=== PATIENT | male | born 1990 | race Caucasian/White ===

== ENCOUNTER 2019-05-06 14:52 | Emergency (ER) | payer BC, OTHER ==
[~2019-05-06] VITALS: Ht 177.8 cm; Wt 86.2 kg
[2019-05-06 15:24] LABS: BASOPHILS % (AUTO) 0 % (0-10); EOSINOPHILS # (AUTO) 0.2 10^3/uL (0.0-0.3); EOSINOPHILS % (AUTO) 2 % (0-10); HEMATOCRIT 44 % (40-54); LYMPHOCYTES # (AUTO) 2.4 X 10^3 (1.0-4.0); LYMPHOCYTES % (AUTO) 30 % (12-44); MEAN CORPUSCULAR HEMOGLOBIN 29 PG (25-34); MEAN CORPUSCULAR HGB CONC 34 G/DL (32-36); MEAN CORPUSCULAR VOLUME 85 FL (80-99); MEAN PLATELET VOLUME 9.8 FL (7.4-10.4); MONOCYTES # (AUTO) 0.5 X 10^3 (0.0-1.0); MONOCYTES % (AUTO) 6 % (0-12); NEUTROPHILS % (AUTO) 62 % (42-75); PLATELET COUNT 234 10^3/uL (130-400); RED CELL DISTRIBUTION WIDTH 12.6 % (10.0-14.5); WHITE BLOOD COUNT 8.1 10^3/uL (4.3-11.0)
[2019-05-06] MEDS ORDERED: ASPIRIN 81 MG CHEW (CHILDREN'S ASA) PO ONE (15:30)
[2019-05-06 15:33] LABS: PROTHROMBIN TIME PATIENT 13.1 SEC (12.2-14.7)
[2019-05-06 15:37] LABS: ALANINE AMINOTRANSFERASE 50 U/L (0-55); ALBUMIN 4.6 GM/DL (3.2-4.5); ALKALINE PHOSPHATASE 65 U/L (40-136); BILIRUBIN,TOTAL 0.5 MG/DL (0.1-1.0); BUN/CREATININE RATIO 10; CALCIUM 9.5 MG/DL (8.5-10.1); CARBON DIOXIDE 29 MMOL/L (21-32); CHLORIDE 104 MMOL/L (98-107); CREATININE SERUM 1.21 MG/DL (0.60-1.30); GFR ESTIMATED > 60; GLUCOSE 90 MG/DL (70-105); MAGNESIUM 2.1 MG/DL (1.8-2.4); POTASSIUM 3.9 MMOL/L (3.6-5.0); SODIUM 142 MMOL/L (135-145); TOTAL PROTEIN 7.5 GM/DL (6.4-8.2)
--- NOTE | 2019-05-06 15:37 | ED Chest Pain ---
General Chief Complaint: Chest Pain Stated Complaint: CHEST PAIN Nursing Triage Note: PT STATES HE BEGAN HAVING CHEST PAIN LAST NIGHT. PT STATES HE HAD INDEGESTION THIS AM AND TOOK TUMS THIS AM. PT DENIES PUSHING OR PULLING EXERCISES TO CAUSE PAIN. PT DENIES WORSENS WITH DEEP BREATH. PT DENIES POINT TENDERNESS. PT DENIES N/V/D/FEVER. PT DENIES SMOKING. Nursing Sepsis Screen: No Definite Risk History of Present Illness Date Seen by Provider: May 06, 2019 Time Seen by Provider: 15:15 Initial Comments 28-year-old male presents for chest pressure. He reports last evening he was having pain in his right leg intermittently. Today he has had some numbness and midsternal chest pressure. 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 He denies any back or neck injuries. Timing/Duration: 24 hours Severity/Quality: mild Location: substernal Radiation: no radiation Prior CP/Workup: no prior chest pain ASA po ELECTRICAL DESIGN ENGINEER: No NTG SL ELECTRICAL DESIGN ENGINEER: No Associated Symptoms: back pain; No diaphoresis, No fatigue; heartburn; No nausea/vomiting, No shortness of breath, No syncope, No weakness Allergies and Home Medications Allergies Coded Allergies: No Known Drug Allergies (Unverified , 05/06/19) Home Medications Esomeprazole Magnesium 40 Mg Cap, 40 MG PO DAILY Prescribed by: RAMBO FISHER on 05/06/19 1643 Famotidine 20 Mg Tablet, 20 MG PO BID Prescribed by: RAMBO FISHER on 05/06/19 1643 Patient Home Medication List Home Medication List Reviewed: Yes Review of Systems Review of Systems Constitutional: no symptoms reported, see HPI Cardiovascular: See HPI, Chest Pain Musculoskeletal: see HPI, back pain, neck pain All Other Systems Reviewed Negative Unless Noted: Yes Past Ueygjoj-Nvmnrr-Wfzipd Hx Past Med/Social Hx: Reviewed Nursing Past Med/Soc Hx Patient Social History Alcohol Use: Denies Use Recreational Drug Use: No Smoking Status: Current Everyday Smoker Type Used: Smokeless Tobacco Recent Foreign Travel: No Contact w/Someone Who Travel: No Recent Infectious Disease Expo: No Recent Hopitalizations: No Physical Abuse: No Sexual Abuse: No Mistreated: No Fear: No Seasonal Allergies Seasonal Allergies: No Past Medical History Surgeries: No Respiratory: No Cardiac: No Neurological: No Genitourinary: No Gastrointestinal: No Musculoskeletal: No Endocrine: No HEENT: No Cancer: No Psychosocial: No Integumentary: No Physical Exam Vital Signs Vital Signs - First Documented 05/06/19 15:03 Temp 97.7 Pulse 73 Resp 18 B/P (MAP) 144/88 (106) Pulse Ox 99 O2 Delivery Room Air Capillary Refill : Less Than 3 Seconds Height, Weight, BMI Height: 5'10.00" Weight: 190lbs. oz. 86.713863qr; BMI Method:Stated General Appearance: No Apparent Distress, WD/WN HEENT: PERRL/EOMI, TMs Normal, Normal ENT Inspection, Pharynx Normal Neck: Full Range of Motion, Normal Inspection, Non Tender, Supple Respiratory: Chest Non Tender, Lungs Clear, Normal Breath Sounds Cardiovascular: Regular Rate, Rhythm, No Edema, No Murmur, Normal Peripheral Pulses Gastrointestinal: Normal Bowel Sounds, Non Tender, Soft Neurologic/Psychiatric: Alert, Oriented x3, No Motor/Sensory Deficits, Normal Mood/Affect Skin: Normal Color, Warm/Dry Lymphatic: No Adenopathy Progress/Results/Core Measures Results/Orders Lab Results Laboratory Tests Test 05/06/19 14:59 Range/Units White Blood Count 8.1 4.3-11.0 10^3/uL Red Blood Count 5.16 4.35-5.85 10^6/uL Hemoglobin 15.0 13.3-17.7 G/DL Hematocrit 44 40-54 % Mean Corpuscular Volume 85 80-99 FL Mean Corpuscular Hemoglobin 29 25-34 PG Mean Corpuscular Hemoglobin Concent 34 32-36 G/DL Red Cell Distribution Width 12.6 10.0-14.5 % Platelet Count 234 130-400 10^3/uL Mean Platelet Volume 9.8 7.4-10.4 FL Neutrophils (%) (Auto) 62 42-75 % Lymphocytes (%) (Auto) 30 12-44 % Monocytes (%) (Auto) 6 0-12 % Eosinophils (%) (Auto) 2 0-10 % Basophils (%) (Auto) 0 0-10 % Neutrophils # (Auto) 5.0 1.8-7.8 X 10^3 Lymphocytes # (Auto) 2.4 1.0-4.0 X 10^3 Monocytes # (Auto) 0.5 0.0-1.0 X 10^3 Eosinophils # (Auto) 0.2 0.0-0.3 10^3/uL Basophils # (Auto) 0.0 0.0-0.1 10^3/uL Prothrombin Time 13.1 12.2-14.7 SEC INR Comment 1.0 0.8-1.4 Activated Partial Thromboplast Time 27 24-35 SEC Sodium Level 142 135-145 MMOL/L Potassium Level 3.9 3.6-5.0 MMOL/L Chloride Level 104 98-107 MMOL/L Carbon Dioxide Level 29 21-32 MMOL/L Anion Gap 9 5-14 MMOL/L Blood Urea Nitrogen 12 7-18 MG/DL Creatinine 1.21 0.60-1.30 MG/DL Estimat Glomerular Filtration Rate > 60 BUN/Creatinine Ratio 10 Glucose Level 90 70-105 MG/DL Calcium Level 9.5 8.5-10.1 MG/DL Corrected Calcium 8.5-10.1 MG/DL Magnesium Level 2.1 1.8-2.4 MG/DL Total Bilirubin 0.5 0.1-1.0 MG/DL Aspartate Amino Transf (AST/SGOT) 24 5-34 U/L Alanine Aminotransferase (ALT/SGPT) 50 0-55 U/L Alkaline Phosphatase 65 40-136 U/L Myoglobin 28.4 10.0-92.0 NG/ML Troponin I < 0.028 <0.028 NG/ML Total Protein 7.5 6.4-8.2 GM/DL Albumin 4.6 H 3.2-4.5 GM/DL My Orders Orders - RAMBO FISHER Cbc With Automated Diff (05/06/19 15:17) Magnesium (05/06/19 15:17) Chest 1 View, Ap/Pa Only (05/06/19 15:17) Ekg Tracing (05/06/19 15:17) Cardiac Profile 1 (05/06/19 15:17) Comprehensive Metabolic Panel (05/06/19 15:17) Myoglobin Serum (05/06/19 15:17) Protime With Inr (05/06/19 15:17) Partial Thromboplastin Time (05/06/19 15:17) Monitor-Rhythm Ecg Trace Only (05/06/19 15:17) Ed Iv/Invasive Line Start (05/06/19 15:17) Aspirin Chewable Tablet (Baby Aspirin Ch (05/06/19 15:30) Lidocaine 2% Viscous 15 Ml (Xylocaine Vi (05/06/19 15:45) Antacid Suspension (Mylanta Suspension (05/06/19 15:45) Medications Given in ED Current Medications Medications Dose Ordered Sig/[place] Route Start Time Stop Time Status Last Admin Dose Admin Al Hydrox/Mg Hydrox/Simethicone 30 ml ONCE ONCE PO 05/06/19 15:45 05/06/19 15:46 DC 05/06/19 15:54 30 ML Aspirin 324 mg ONCE ONCE PO 05/06/19 15:30 05/06/19 15:31 DC 05/06/19 15:53 324 MG Lidocaine HCl 15 ml ONCE ONCE PO 05/06/19 15:45 05/06/19 15:46 DC 05/06/19 15:54 15 ML Vital Signs/I&O 05/06/19 05/06/19 15:03 17:03 Temp 97.7 97.7 Pulse 73 73 Resp 18 18 B/P (MAP) 144/88 (106) 144/88 (106) Pulse Ox 99 99 O2 Delivery Room Air Blood Pressure Mean: 106 Progress Progress Note : Time: 15:15 Progress Note Patient seen and evaluated, will obtain labs, EKG, chest x-ray and aspirin 324 mg orally. 1545 labs essentially normal, patient does report history of GERD. Will give GI cocktail and reevaluate. 1630 patient reports improvement in symptoms after the GI cocktail. We'll provide a day and H2 alan or PPI for the third. He is going to establish care with Dr. Servin's office. Encouraged follow-up there. Discharge instructions and precautions reviewed with the patient. All questions answered. Initial ECG Impression Date: May 06, 2019 Initial ECG Impression Time: 14:57 Initial ECG Rate: 74 Initial ECG Rhythm: Normal Sinus Initial ECG Intervals: Normal Initial ECG Intervals UT 132, QRSD 96, QT 392, QTC 435. [place] P 44, QRS 56, T 33. Initial ECG Impression: Normal Initial ECG Comparisson: No Previous ECG Available Comment Reviewed with Dr. García, agreed with interpretation. Departure Impression Primary Impression: GERD (gastroesophageal reflux disease) Qualified Codes: K21.9 - Gastro-esophageal reflux disease without esophagitis Additional Impressions: Back pain Qualified Codes: M54.41 - Lumbago with sciatica, right side; M54.42 - Lumbago with sciatica, left side; G89.29 - Other chronic pain Neck pain Disposition: 01 HOME, SELF-CARE Condition: Improved Departure-Patient Inst. Decision time for Depature: 16:30 Referrals: NO,LOCAL PHYSICIAN (PCP) Primary Care Physician Patient Instructions: Acid Reflux (Gastroesophageal Reflux Disease), Adult (DC), Chest Pain That Is Not Caused by the Heart (DC), Chronic Neck Pain (DC), Lateral Epicondylitis Exercises Add. Discharge Instructions: Alternate heat and ice on your low back and neck. You may take Tylenol 650 mg alternating with ibuprofen 600 mg every 4 hours for pain. Establish care and Follow-up with Dr. Servin. Take the muscle relaxant at bedtime. Take the prescriptions for your stomach as directed. Return to emergency department for chest pain, nausea and vomiting, increased back/neck pain, or new concerns. All discharge instructions reviewed with patient and/or family. Voiced understanding. Scripts Famotidine (Acid Truss Builder (FAMOTIDINE)) 20 Mg Tablet 20 MG PO BID, #40 TAB 0 Refills Prov: RAMBO FISHER 05/06/19 Esomeprazole Magnesium (Nexium) 40 Mg Cap 40 MG PO DAILY, #20 CAP 0 Refills Prov: RAMBO FISHER 05/06/19 Copy Copies To 1: DIAZ SERVIN AMY ARNP May 06, 2019 15:36
[2019-05-06] MEDS ORDERED: ANTACID SUSP 30 ML UDC (MYLANTA) PO ONE (15:45)
[2019-05-06] MEDS ORDERED: LIDOCAINE 2% VISCOUS 15 ML UDC PO ONE (15:45)
--- NOTE | 2019-05-06 16:08 | Diagnostic Imaging Report ---
PATIENT HISTORY: Chest pain. TECHNIQUE: Single frontal view of the chest. COMPARISON: None. FINDINGS: Lung volumes are mildly large. No focal consolidation is seen. There is no pleural effusion or pneumothorax. The cardiomediastinal silhouette is normal in size and contour. IMPRESSION: Mildly large lung volumes with no acute pulmonary abnormality seen. Dictated by: Dictated on workstation # [id number]
[2019-05-06] MEDS ORDERED: FAMO20TA3 PO (16:43)
[2019-05-06] MEDS ORDERED: NF-ESOM40C PO (16:43)
[2019-05-06 17:03] VITALS: BP 144/88
== END 2019-05-06 16:55 | disposition home or self-care (01) ==
LOC: ER 14:53
DX: K21.9 Gastro-esophageal reflux disease without esophagitis (principal); M54.2 Cervicalgia; M54.5 Low back pain; F17.200 Nicotine dependence, unspecified, uncomplicated
CPT/HCPCS: 36415; 71045; 80053; 83735; 83874; 84484; 85025; 85610; 85730; 93005; 93041

== ENCOUNTER → 2022-03-14 | Outpatient (CLI) | payer OTHER ==
[~2022-03-14] MED LIST: FAMO20TA3 PO; NF-ESOM40C PO
== END ==
LOC: CARD 09:30
PROVIDERS: ATTEND Pediatrics
DX: R07.89 Other chest pain (principal)
CPT/HCPCS: 93225; 93226

== ENCOUNTER → 2022-03-31 | Outpatient (CLI) | payer OTHER | PROVIDERS: ATTEND Internal Medicine Cardiovascular Disease | DX: R07.9 Chest pain, unspecified (principal) | CPT/HCPCS: 93306 ==

== ENCOUNTER → 2023-05-10 | Outpatient (CLI) | payer OTHER ==
[~2023-05-10] MED LIST changes: +PANT40GR PO
== END ==
LOC: ORTHO 11:05
PROVIDERS: ATTEND Orthopaedic Surgery
DX: G56.03 Carpal tunnel syndrome, bilateral upper limbs (principal)
CPT/HCPCS: 99203

== ENCOUNTER 2023-05-11 05:32 | Outpatient (CLI) | payer OTHER ==
[~2023-05-11] VITALS: Ht 177.8 cm; Wt 90.9 kg
[~2023-05-11 05:32] MED LIST changes: -PANT40GR PO
[2023-05-12] MEDS ORDERED: PANT40GR PO (15:48)
== END 2023-05-12 16:04 | disposition home or self-care (01) ==
LOC: PREOP 05:32
PROVIDERS: ATTEND Orthopaedic Surgery
DX: Z01.818 Encounter for other preprocedural examination (principal)

== ENCOUNTER 2023-05-19 07:09 | Day surgery (SDC) | payer OTHER ==
[2023-05-19] VITALS (9 sets, daily range): BP systolic 98–133; BP diastolic 47–86
[~2023-05-19] VITALS: Ht 177.8 cm; Wt 90.9 kg
[~2023-05-19 07:09] MED LIST changes: +PANT40GR PO
[2023-05-19] MEDS ORDERED: LIDOCAINE 1% INJ 20 ML VIAL ONE (07:24)
[2023-05-19] MEDS ORDERED: BUPIVACAINE 0.5% 30 ML (SENSORCAINE) VIAL ONE (07:24)
[2023-05-19] MEDS ORDERED: LIDOCAINE/EPI 1%-1:100,000 (XYLOCAINE) 20ML ONE (07:24)
[2023-05-19] MEDS ORDERED: LACTATED RINGERS 1,000 ML IV PRN (08:00)
[2023-05-19] MEDS ORDERED: ceFAZolin INJECTION 2,000 MG in NS (IVPB) 50 ML IV ONE (08:00)
[2023-05-19] MEDS ORDERED: PROPOFOL INJECTION 50 ML IV ONE ×2 (08:34→08:51)
[2023-05-19] MEDS ORDERED: MIDAZOLAM 2 MG/2 ML (VERSED) VIAL ONE (08:34)
--- NOTE | 2023-05-19 08:38 | Progress Note-Pre Operative ---
Pre-Operative Progress Note Date of Available H&P: May 10, 2023 Date H&P Reviewed: May 19, 2023 Time H&P Reviewed: 08:30 History & Physical: H&P Reviewed, Patient Examed, No changes noted Pre-Operative Diagnosis: Right Carpal Tunnel Syndrome GIACOMO MIKE MD May 19, 2023 08:38
[2023-05-19] MEDS ORDERED: GLYCOPYRROLATE 0.2 MG/ML (ROBINUL) 2 ML VIAL ONE (08:50)
[2023-05-19] MEDS ORDERED: LIDOCAINE 1% INJ 20 ML VIAL INJ ONE (08:58)
[2023-05-19] MEDS ORDERED: BUPIVACAINE 0.5% 30 ML (SENSORCAINE) VIAL INJ ONE (08:58)
[2023-05-19] MEDS ORDERED: LIDOCAINE/EPI 1%-1:100,000 (XYLOCAINE) 20ML INJ ONE (08:59)
[2023-05-19] MEDS ORDERED: NEO/POLY/BAC (NEOSPORIN) OINT 15 GM TUBE ONE (09:09)
--- NOTE | 2023-05-19 09:17 | Operative Report - Ortho ---
Operative Report Surgeon (s)/Manager Of Tires Sales (s) Surgeon GIACOMO MIKE MD Manager Of Tires Sales n/a Pre-Operative Diagnosis Right Carpal Tunnel Syndrome Post-Operative Diagnosis same Operative Report Date of Procedure: May 19, 2023 Name of Procedure Performed: Right Carpal Tunnel Release Description & Findings After obtaining informed consent and marking the patient in the preoperative holding area, the patient was administered IV antibiotics. The patient was taken to the operating room and sedation was induced. Local anesthetic was placed. The right upper extremity was prepped and draped in the usual sterile fashion. Surgical timeout was taken. Incision was made just ulnar to the thenar crease. Blunt dissection was carried down to the longitudinal fibers of the palmar fascia; these were divided in line revealing the transverse carpal ligament. Beginning distally and working proximally, carpal tunnel release was performed. Nerve protector was placed and release was completed back to the level of the forearm fascia. Probe was inserted and release was palpably complete. Tourniquet was dropped and hemostasis was achieved. Wound was closed with 4-0 nylon. Wound was dressed with antibiotic ointment, xeroform, 4x4s, ruby, ABD for soft splint, cast padding, and JOSE ANGEL wrap. Patient tolerated the procedure well and was stable to the recovery room. Anesthesia Type Local plus MAC Estimated Blood Loss minimal Specimen(s) collected/removed None GIACOMO MIKE MD May 19, 2023 09:17
[2023-05-19] MEDS ORDERED: OXC5T PO (09:19)
--- NOTE | 2023-05-19 09:22 | Anesthesia-General Post-Op ---
MAC Patient Condition Mental Status/LOC: Same as Preop Cardiovascular: Satisfactory Nausea/Vomiting: Absent Respiratory: Satisfactory Pain: Controlled Complications: Absent Post Op Complications Complications None Follow Up Care/Instructions Patient Instructions None needed. Anesthesiology Discharge Order Discharge Order Patient is doing well, no complaints, stable vital signs, no apparent adverse anesthesia problems. No complications reported per nursing. SARABJIT CERON CRNA May 19, 2023 09:22
[2023-05-19] MEDS ORDERED: ONDANSETRON 4 MG/2 ML (SDV) Z0FRAN IVP PRN (09:30)
[2023-05-19] MEDS ORDERED: HYDROmorphone 2 MG/ML VIAL (DILAUDID) IV ONE (09:30)
== END 2023-05-19 11:55 | disposition home or self-care (01) ==
LOC: SDC 07:09
PROVIDERS: ATTEND Orthopaedic Surgery
DX: G56.03 Carpal tunnel syndrome, bilateral upper limbs (principal); K21.9 Gastro-esophageal reflux disease without esophagitis; Z79.899 Other long term (current) drug therapy; F17.220 Nicotine dependence, chewing tobacco, uncomplicated; Z28.310 Unvaccinated for COVID-19
CPT/HCPCS: 87081

== ENCOUNTER → 2023-05-31 | Outpatient (CLI) | payer OTHER ==
[~2023-05-31] MED LIST changes: +OXC5T PO
== END ==
LOC: ORTHO 13:23
PROVIDERS: ATTEND Orthopaedic Surgery
DX: Z47.89 Encounter for other orthopedic aftercare (principal)

== ENCOUNTER → 2023-08-24 | Outpatient (CLI) | payer OTHER ==
[~2023-08-24] MED LIST changes: +FAMO-356 PO; -FAMO20TA3 PO; +HOLD METFORMIN - RECEIVED CONTRAST 20 ML VIAL IV SCH; +IOHEXOL 350 MG/ML 100 ML (OMNIPAQUE 350) VIAL IV ONE; +NS 100 ML (IVPB) BAG IV ONE
--- NOTE | 2023-08-24 09:00 | Diagnostic Imaging Report ---
EXAMINATION: CT abdomen and pelvis with intravenous contrast. TECHNIQUE: Multiple contiguous axial images were obtained through the abdomen and pelvis after the uneventful administration of intravenous contrast. All CT scans use one or more of the following dose optimizing techniques: automated exposure control, MA and/or KvP adjustment based on patient size and exam type or iterative reconstruction. HISTORY: Lower abdominal pain. COMPARISON: None available. FINDINGS: Limited views of the lower thorax are unremarkable. The liver is normal without focal lesion. There is no biliary ductal dilation. Gallbladder is normal. Pancreas is normal. Spleen is normal. Adrenal glands are normal. There is a tiny nonobstructing stone in the left kidney. No suspicious renal lesion. No ureteral stone.. There is no hydronephrosis. Urinary bladder is normal. Bowel is normal in caliber without obstruction or inflammation. No free fluid or air. No abdominal or pelvic lymphadenopathy. Aorta is normal in caliber without aneurysm. There are no suspicious osseous lesions. IMPRESSION: 1. No acute abnormality in the abdomen or pelvis. Dictated by: Dictated on workstation # [id number]
== END ==
LOC: RAD 07:59
PROVIDERS: ATTEND Nurse Practitioner Family
DX: R10.30 Lower abdominal pain, unspecified (principal)
CPT/HCPCS: 74177